=== PATIENT | male | born 1960 | race Caucasian/White ===

== ENCOUNTER → 2020-09-05 16:33 | Outpatient (CLI) | payer OTHER, SELFPAY ==
[2020-09-05 16:05] VITALS: BMI 24.3
== END ==
PROVIDERS: Visit Provider Physician Assistant Surgical
DX: R55 Syncope and collapse (principal)

== ENCOUNTER 2020-09-05 16:49 | Emergency (ER) | payer OTHER, SELFPAY ==
[2020-09-05 16:05] VITALS: BMI 24.3
[2020-09-05 16:50] VITALS: BP 121/107; PULSE 90; RESP 16; TEMP 36.1; O2SAT 96; BMI 28.0
[2020-09-05] MEDS: HYDROcodone Bitartrate/Apap 5/325 Tablet PO (17:33)
--- NOTE | 2020-09-05 17:48 | ED.DCSUM_ITS ---
History of Present Illness Chief Complaint: Syncope Informant: Patient Onset: Today Context: Sudden Onset Narrative: Patient is a 59-year-old male that denies any past medical history presenting after [facility]opal episode at the [facility]. Patient had an injury earlier this morning and ultimately sustained left distal radius and ulnar fracture. He was at the [facility] getting this evaluated when he started feel lightheaded and like he might pass out. States this was happening while they were trying to remove his glove and jacket which caused him significant pain in his affected wrist. Patient was reported to have hypotension and states he felt like he was seeing splotches all over the room, sweating and nauseous. His symptoms have since resolved. He was sent to the ER for further evaluation. He states he feels well. His only medication is 81 mg aspirin. Patient is on anything for pain for his fracture. He denies any other complaints at this time. No associated numbness or tingling of his hand just left wrist pain. Past Medical History - Allergies and Home Meds Allergies/Adverse Reactions: Allergies No Known Allergies Allergy (Verified 09/05/20 16:55) Primary Care Physician: Care Physician,No Primary [Primary Care Provider] - Past Medical History: None Surgical History: noncontributory Lives: Spouse/ Significant Other Smoking Status: Current every day smoker Review of Systems General: Reports: Sweats, - - Lightheaded/presyncope. Denies: Chills, Fever Eyes: Denies: Visual changes - bilaterally, Diplopia ENT: Denies: Rhinorrhea, Sore throat Cardiovascular: Denies: Chest pain, Palpitations Respiratory: Denies: Dyspnea, Cough, Dyspnea on exertion Gastrointestinal: Reports: Nausea. Denies: Abdominal pain, Vomiting, Diarrhea, Melena, Hematochezia Genitourinary: Denies: Dysuria, Hematuria, Frequency Musculoskeletal: Reports: Extremity Pain - Left wrist. Denies: Back pain Skin: Denies: Rash, Wounds Neurological: Denies: Headache, Weakness, Numbness Physical Exam Vital Signs/Narrative: Vital Signs Temp Pulse Resp BP Pulse Ox 09/05/20 16:50 96.9 F L 90 16 121/107 H 96 Inital Vital Signs reviewed: Yes General: Well nourished, Well developed, No Acute Distress Head: Normocephalic, Atraumatic Eyes: Perrl, EOMI ENT: Moist mucous membranes, No rhinorrhea Neck: Supple, Nontender, No JVD Cardiovascular: Regular rate, Regular rhythm, No murmurs Respiratory: No distress, CTA bilaterally, Chest nontender Abdomen: Soft, Nontender, Nondistended, Normal bowel sounds Back: Nontender, Normal Inspection Extremities: No edema, - - Left upper extremity is in a splint. He is normal movement of his fingers with brisk capillary refill. Skin: Normal color, No rash Neurological: Alert, Oriented x3, Cranial nerves II-XII grossly intact, Normal Strength, Normal Sensation Psychological: Normal affect, Normal Mood Diagnostic/Tx/Re-eval - Rhythm Strip Rhythm Strip: Sinus Rhythm Rate: 84 Ectopy: None - EKG Initial EKG Interpretation: Sinus Rhythm, - - Sinus rhythm at a rate of 84 Normal axis Normal intervals Normal ST segments - Medical Decision Making Patient is evaluated after what sounds like a presyncopal episode at the [facility] clinic. Seems to be associate with pain. He is now well-appearing and asymptomatic. His EKG is normal. His vital signs are normal. He is ambulated around the ER and feels better. He is given Waterfall for pain control in the ER. I did discuss with the PA that was taking care of him at the [facility] clinic who states that he has an appointment at [address] Wu tomorrow morning. Patient has not received any prescriptions for pain medication so I will provide prescriptions now. Patient is counseled on return precautions. He is offered a more thorough cardiac evaluation as well as checking for any electrolyte normalities but patient declines at this time. His he is well-appearing and currently asymptomatic and the story is highly consistent with vasovagal presyncope I think this is reasonable. He is given return precautions. ED Disposition - Plan for ED Patient: Disposition: Home or Assisted Living Diagnosis: Pre-syncope, Closed fracture of left distal radius and ulna Instructions: ED Near Syncope Vasovagal, ED Fracture Upper Extremity Prescriptions: Hydrocodone Bitart/Apap 5-325 [Waterfall 5MG-325MG] 1 tablet PO Q6H PRN PRN 3 Days #10 tablet PRN Reason: Pain Transmission Status: Received by JAUN MOODY #[id number] Referrals: Radha Yan DO [STAFF PHYSICIAN] - Additional Instructions: Have an appointment with orthopedist tomorrow at 815. You will go to the same building where your x-ray was done. You may also take ibuprofen in addition to the pain pill prescribed you today for pain. Elevate the left arm as much as possible. Return the emergency room with any worsening symptoms.
[2020-09-05 17:53] VITALS: BP 120/64; PULSE 78; RESP 16; O2SAT 98
--- NOTE | 2020-09-05 17:54 | EKG12_ITS ---
Test Reason : SYNCOPE Blood Pressure : / mmHG Vent. Rate : 084 BPM Atrial Rate : 084 BPM P-R Int : 136 ms QRS Dur : 090 ms QT Int : 358 ms P-R-T Axes : 062 008 072 degrees QTc Int : 423 ms Normal sinus rhythm Normal ECG Confirmed by NASREEN MARVIN, MILVIA ([id number]), assistant film editor DILLON VEE ([id number]) on 09/08/2020 11:31:41 AM Referred By: COBY Confirmed By:MILVIA DOWNEY MD
== END 2020-09-05 18:04 | disposition home or self-care (01) ==
PROVIDERS: Emergency Provider Emergency Medicine
DX: R55 Syncope and collapse (principal); S52.92XA Unspecified fracture of left forearm, initial encounter for closed fracture; S52.202A Unspecified fracture of shaft of left ulna, initial encounter for closed fracture; F17.200 Nicotine dependence, unspecified, uncomplicated; X58.XXXA Exposure to other specified factors, initial encounter
CPT/HCPCS: 93005; 99284

== ENCOUNTER 2020-09-15 12:08 | Day surgery (SDC) | payer OTHER, SELFPAY ==
--- NOTE | 2020-09-14 06:00 | HP_ITS ---
I have re-examined the patient. There are no clinical changes since date of exam. Intake Intake Visit Reasons: left wrist Chief Complaint: L wrist injury Accompanied by: Is patient in pain?: Yes Allergies No Known Allergies Allergy (Verified 09/05/20 16:55) Medications Hydrocodone Bitart/Apap 5-325 [[place] 5MG-325MG] 1 tab PO Q6H PRN PRN 3 Days #10 tab 09/05/20 [Rx Confirmed 09/06/20] PFSH Social History (Updated 09/06/20 @ 11:[address] Radha Yan DO) Smoking Status: Current every day smoker HPI left wrist: Details: Parts of this documentation were recorded by a scribe, this documentation accurately reflects the service provided and the decisions made by me, Dr. Radha Yan DO 09/06/20 0834. KATT ECHEVARRIA is a 59 year old M NEW patient here today for left wrist both bone fx. DOI: 09/06/2020 [facility] by the [facility]. Patient states that he was at work yesterday and someone fell onto his wrist and he had instant pain and deformity. He was then taken to the [facility]. Patient had x-rays and was placed into a splint and told to F/U with our office. His splint is till intact he has intact sensation of the fingers. Denies numbness, tingling or other associated symptoms. Denies any previous injuries of the wrist. ROS Const Reports system reviewed and no additional complaints, except as docu Eyes Reports system reviewed and no additional complaints, except as docu ENT Reports system reviewed and no additional complaints, except as docu Card Reports system reviewed and no additional complaints, except as docu Resp Reports system reviewed and no additional complaints, except as docu GI Reports system reviewed and no additional complaints, except as docu Reports system reviewed and no additional complaints, except as docu Musc Reports joint pain, Reports joint swelling, Reports limited joint movement, Denies numbness, Reports radiating pain into limb, Denies tingling Skin/Breast Denies redness, Denies lesions, Denies itching, Denies rash, Denies skin swelling Neuro No numbness, No tingling Ortho Exam General General: Yes no acute distress Neurologic: Yes alert, Yes oriented x3 Psychologic: Yes reasonable and appropriate Right Wrist/Hand Skin/Wound: Yes Swelling, Yes Ecchymosis Left Wrist/Hand Date of injury: 09/05/20 Skin/Wound: Yes Swelling, Yes Ecchymosis, No erythema Assessment & Plan Problems 1. Closed fracture of distal end of left radius S52.502A 2. Unspecified fracture of lower end of unspecified ulna, initial encounter for closed fracture S52.609A 3. Forearm fractures, both bones, closed S52.90XA; S52.209A Plan Personally reviewed patients x-rays of the wrist. Patient educated that he has a both bone shaft fx. Patient educated that he does require surgery to fix the procedure. Reviewed the pre-operative plans with the patient. Risks and benefits of the procedure were fully explained, including but not limited to infection, neurovascular injury, continued pain, arthritis, stiffness, need for further surgery, re-injury, DVT, PE, general risks of anesthesia, and loss of limb or life. The patient understands all the risks and does wish to proceed with written consent. Reapplied a long arm posterior splint to allow finger ROM for the patient. Encouraged to working on elevation, finger ROM and icing to reduce the swelling for surgery. We will try to do surgery on saturday and if he is too swollen then we will look at fixing him 09/14/2020. We discussed the current risk associated COVID-19. While it is understood that there is a community spread of COVID 19 the risk of jackson COVID-19 while at [facility] is very low, however, the risk cannot be completely mitigated because of the community spread of the disease. We discussed in detail the risk of exposure to and or potential harm posed by the COVID-19 virus with having a surgery/procedure at this time versus the risk of delaying the surgery/procedure. Is not possible to know either the risk of delaying the surgery procedure or chance of getting an infection with perfect accuracy, but a joint decision was made to proceed at this time with a schedule surgery/procedure as indicated on the consent form. Patient was notified that we will need to comply with any screening or testing [facility] wishes to perform or that surgery may be delayed for any positive results. Follow up post op or sooner if pain, swelling, numbness or associated symptoms, or concerns develop. All questions answered. Patient in agreement of plan. Coding Level of Care Code Off vis,new,level 3 Diagnoses Closed fracture of distal end of left radius S52.502A ??Encounter type: initial encounter Unspecified fracture of lower end of unspecified ulna, initial encounter for closed fracture S52.609A Forearm fractures, both bones, closed S52.90XA; S52.209A
[2020-09-14 08:19] VITALS: BP 127/68; PULSE 83; RESP 16; TEMP 36.9; O2SAT 99; BMI 25.6
[2020-09-14 08:19] LABS: Hematocrit 46.4 % (40-54); Hemoglobin 15.5 g/dL (13.0-16.5); Mean Corp Hgb Conc 33.4 g/dL (32-36); Mean Corpuscular Hgb 30.2 pg (27.0-32.0); Mean Corpuscular Volume 90.4 fL (80-94); Mean Platelet Vol. 9.7 fl (6.2-12.0); Platelet Count 288 K/mm3 (150-450); RBC Distribution Width CV 13.4 % (11.6-14.6); RBC Distribution Width SD 44.4 fl (35.1-43.9); Red Blood Count 5.13 M/mm3 (4.6-6.2); White Blood Count 10.6 K/mm3 (4.4-11.0)
[2020-09-14] MEDS: Lactated Ringers 1,000 ML 100 ML IV (08:36)
--- NOTE | 2020-09-14 08:53 | PCM.DC.ORTHO ---
Discharge Diet: No Restrictions - leave splint on and keep clean and dry, follow up in 2 weeks, call with concerns, elevate arm above heart as much as possible and use fingers as much as tolerated Discharge Activity: May Not Drive May shower in (days): 1 Ice area for (Minutes): 20 - Every hour while awake. Weight Bearing Status: Weight bearing as tolerated Keep extremity elevated above heart level: Operative Extremity Call your doctor if your incision/area has: Continuous Slow Oozing, Sudden Increased Bleeding, Increased Pain/ Swelling, Increased Redness, Foul Smelling Discharge Call your doctor if you observe: Fever of 101 or Higher, Coldness, Increased Pain, Numbness or Tingling, Change in Color, Calf discomfort Allergies/Adverse Reactions: Allergies Latex, Natural Rubber Allergy (Verified 09/14/20 08:16) Hives Medications to take at Discharge hydrocodone 5 mg-acetaminophen 325 mg tablet 1 tab PO Q6H PRN #43 tab 09/08/20 Hydrocodone Bitart/Apap 5-325 [[place] 5MG-325MG] 1 - 2 tablet PO Q6H PRN PRN 5 Days #40 tablet 09/14/20 Ibuprofen 200 mg PO 09/14/20 The following prescriptions were given: Hydrocodone Bitart/Apap 5-325 [[place]az 5MG-325MG] 1 - 2 tablet PO Q6H PRN PRN 5 Days #40 tablet PRN Reason: Pain Transmission Status: Sent to [facility] Primary Care Physician: Care Physician,No Primary [Primary Care Provider] - Test Results: Test results from this visit will be discussed in further detail at your follow-up appointment, if applicable. Please Follow Up With: Radha Yan, DO - [phone]
--- NOTE | 2020-09-14 08:54 | PCM.OPRPT ---
Report of Operation Date of Procedure: 09/14/20 Pre-Operative Diagnosis: left displaced radial and ulnar shaft fractures Post-Operative Diagnosis: same Surgery/Procedure Performed:: orif left radius and ulna shaft fracture energy sales broker: Alexis Billy Type of Anesthesia:: General/Regional Anesthesiologist: Mau Penn Estimated Blood Loss (mL): min Fluids Replaced: 1300cc lr Description of Procedure: Preop note Patient is a 59-year-old who fell onto his arm on the left upper extremity and he has crush was at the work. Patient seen in the office and he was neuro intact however painful and swollen hand however no signs of compartment syndrome and neurovascular intact. Risk-benefit alternatives risk discussed with patient. Risk include but not limited to blood loss, blood clot, infection, neurovascular, failure procedure loss of life and loss of limb. Discussed risks of nonop vs operative treatment. Discussed risk of stiffness and loss of motion. discussed optimization of outcome by using wrist/ hand as much as possible. also discussed risks of delayed healing from smoking, etc. patient aware and would like to proceed with surgical intervention of comminuted radius and ulnar shaft fractures. Operative note Patient seen examined preop. Holding area. Left arm was marked. Patient brought to the operating placed supine the operating table. All bony promises well-padded SCDs placed his bilateral lower extremity. The left arm was prepped and draped in usual sterile technique with a tourniquet around his upper arm. Signed, anesthesia, antibiotics were administered. Patient left arm was prepped and draped usual sterile technique we marked out our system for our incision we then elevate exsanguinated the arm 200 pressure of 250 torr was placed on the tourniquet. Timeout was performed. We then used fluoroscopy to ascertain the level of our incisions. We did start with the distal radius first. Actually the radial shaft fracture that extended just proximal to the distal radius articular surface. He was a 15 blade cut through skin dissect down subcu tenotomy the level of the FCR FCR was then released and moved radially we then dissected down the FCR fascia also we then developed the interval between the brachioradialis and mobilized the flexor carpi radialis muscle. We protected all neurovascular checks at all times. We then dissected down to the pronator quadratus which was released X sharply off of its insertion on the radial side. We then combination of irrigation and clamps were able to reduce the fracture site. We then placed standard technique Synthes plate 3.5 dcp plate. After provisional fixation with our first placement of our screw on the more proximal and we then drilled on the distal to fracture in hole without using our guide neuro to eccentrically placed the screws so to better facilitate reduction of her fracture site in the oblique plane. We did have good reduction of her fracture site at that point. We then place remained screws using standard technique and place a lag screw across fracture site. We took multiple images throughout the case to evaluate reduction of his fracture site. We then moved to the ulnar side. We made our incision over the FCU ECU intersection, and dissected down carefully been protecting all neurovascular structures as less as we did in the radial shaft fracture side. We then elevated as we had had to perform a buttress placed on the volar aspect as it was it was a shear fracture of the distal ulna going articular as well as comminution and poor bone quality. We placed a tube point 4T plate and then were able to use a lobster claws to reduce the fracture to the plate and then placed 2 distal locking screws and then subsequently placed a lag screw through the fracture site and then placed in secured further and screws 3 proximally as well in standard technique. TOok multiple images in multiple planes to evaluate fracture reduction. Irrigated the incisions with copious amounts of sterile saline. Tourniquet was deflated. Closed the subcutaneous skin with 3-0 Vicryl and skin with alyssa. Sterile dressings and a posterior splint at 90 degrees was applied. Patient taught procedure well no complication shows recovery room stable condition See chart for screw lengths. Postoperative note Nonweightbearing left arm Pharmacy has prescription Postop neuro intact Call with increased pain numbness tingling or other issue arises This note was generated with [employer] dictation software. It may contain incorrect words, spelling, and punctuation that were not noted in checking the note before signing. Grafts/Implants Used: [employer]
[2020-09-15 12:52] VITALS: BP 117/57; PULSE 77; RESP 18; TEMP 37.1; O2SAT 97; BMI 25.6
[2020-09-15] MEDS: Lactated Ringers 1,000 ML 100 ML IV ×2 (13:03→17:44)
[2020-09-15] MEDS: Cefazolin 2 GM in 0.9% Normal Saline 100 ML IV (14:12)
--- NOTE | 2020-09-15 14:20 | RAD_ITS ---
STUDY: X-RAY - LEFT WRIST REASON FOR EXAM: Male, 59 years old. ORIF left radius and ulna. Images of elbow were obtained as well by performing to rule out fracture. TECHNIQUE: 9 intraoperative fluoroscopic view(s) of the wrist were obtained. COMPARISON: Left wrist x-ray dated September 05, 2020 FINDINGS: Newly placed dorsal surface cortical plate-screw construct of the distal one third ulna and distal half of the radius fixating the distal fracture fragments and reducing them resulting in near anatomic alignment. Intact distal radioulnar joint and radiocarpal articulation. Images of the elbow joint are included which show no obvious abnormality. RAD/Wrist min 3 Views IMPRESSION: Status post hardware fixation of the distal radius and ulnar fractures Electronically Signed: Sid Roger MD at 23:22 EST , Service support ,
[2020-09-15] MEDS: Mupirocin Ointment 22gm Tube 1 APPLIC (16:53)
[2020-09-15 17:32] VITALS: BP 117/57; BP 131/81; PULSE 61; RESP 18; TEMP 37.1; O2SAT 91
[2020-09-15 17:45] VITALS: BP 108/58; BP 117/57; PULSE 103; RESP 18; O2SAT 94
[2020-09-15] MEDS: Acetaminophen 500 MG Tablet 1000 MG PO (17:57)
[2020-09-15 18:00] VITALS: BP 117/57; BP 122/66; PULSE 107; RESP 18; O2SAT 93
[2020-09-15 18:15] VITALS: BP 117/57; BP 117/71; PULSE 102; RESP 18; TEMP 36.9; O2SAT 93
[2020-09-15 18:48] VITALS: BP 117/57
== END 2020-09-15 18:49 | disposition home or self-care (01) ==
LOC: SDC 12:09 → AC 12:10
PROVIDERS: Anesthesiology; Referring Provider Orthopaedic Surgery; Visit Provider Orthopaedic Surgery
PROC: (CPT 25575; principal; 2020-09-15 13:30)
DX: S52.302A Unspecified fracture of shaft of left radius, initial encounter for closed fracture (principal); S52.202A Unspecified fracture of shaft of left ulna, initial encounter for closed fracture; W50.0XXA Accidental hit or strike by another person, initial encounter; Y93.9 Activity, unspecified; Y92.9 Unspecified place or not applicable; Y99.0 Civilian activity done for income or pay; Z20.828 Contact with and (suspected) exposure to other viral communicable diseases; F17.200 Nicotine dependence, unspecified, uncomplicated
CPT/HCPCS: 01830; 25575; 64417; 36415; 73110; 76000; 85027; 87426; C1713; J7120; J2405